=== PATIENT | male | born 1975 | race Caucasian/White ===

== ENCOUNTER → 2017-12-29 | Emergency (ER) | payer OTHER ==
[~2017-12-29] VITALS: Ht 165.1 cm; Wt 72.6 kg
[~2017-12-29] MED LIST: KETO10TA2 PO; NORFLEX100MG PO
== END | disposition home or self-care (01) ==
LOC: ER 15:14
DX: M54.2 Cervicalgia (principal); M25.511 Pain in right shoulder

== ENCOUNTER 2019-09-11 16:28 | Emergency (ER) | payer OTHER ==
[~2019-09-11] VITALS: Ht 165.1 cm; Wt 71.7 kg
[2019-09-11] MEDS ORDERED: VISTARIL25 MG PO (19:35)
== END 2019-09-11 19:59 | disposition home or self-care (01) ==
LOC: ER 16:28
DX: R07.89 Other chest pain (principal); R00.2 Palpitations; F06.4 Anxiety disorder due to known physiological condition

== ENCOUNTER 2020-01-29 14:57 | Outpatient (CLI) | payer OTHER ==
[~2020-01-29 14:57] MED LIST changes: +VISTARIL25 MG PO
== END 2020-01-29 15:04 | disposition home or self-care (01) ==
LOC: RAD 14:57
DX: R05 Cough (principal)

== ENCOUNTER 2020-01-29 15:29 | Outpatient (CLI) | payer OTHER | END 2020-01-29 15:44 | disposition home or self-care (01) | LOC: LAB 15:29 | DX: J11.1 Influenza due to unidentified influenza virus with other respiratory manifestations (principal); J20.8 Acute bronchitis due to other specified organisms ==

== ENCOUNTER 2020-11-10 13:46 | Emergency (ER) | payer OTHER ==
[~2020-11-10] VITALS: Ht 165.1 cm; Wt 69.9 kg
[2020-11-10] MEDS ORDERED: ZITHROMAX500 MG PO (15:57)
== END 2020-11-10 16:31 | disposition home or self-care (01) ==
LOC: ER 13:46
DX: B34.9 Viral infection, unspecified (principal); Z03.818 Encounter for observation for suspected exposure to other biological agents ruled out

== ENCOUNTER 2020-11-13 13:02 | Inpatient (IN) | payer OTHER ==
[~2020-11-13] VITALS: Ht 165.1 cm; Wt 70.3 kg
[~2020-11-13 13:02] MED LIST changes: +ZITHROMAX500 MG PO
== END 2020-11-16 20:02 | disposition home or self-care (01) | DRG 866 ==
LOC: ER 13:02 → SEC-K 18:43 → MEDI 18:43
PROVIDERS: ADMIT Internal Medicine; ATTEND Internal Medicine
PROC: CB2YYZZ Tomographic (Tomo) Nuclear Medicine Imaging of Respiratory System using Other Radionuclide (ICD-10-PCS; 2020-11-13)
PROC: 4A033R1 Measurement of Arterial Saturation, Peripheral, Percutaneous Approach (ICD-10-PCS; principal; 2020-11-14)
DX: A90 Dengue fever [classical dengue] (principal); J98.11 Atelectasis; E86.0 Dehydration; Z20.828 Contact with and (suspected) exposure to other viral communicable diseases; F41.9 Anxiety disorder, unspecified; D69.49 Other primary thrombocytopenia

== ENCOUNTER 2023-10-03 07:57 | Day surgery (SDC) | payer OTHER | END 2023-10-03 14:35 | disposition home or self-care (01) | LOC: AMB-ENDOS 07:57 | PROVIDERS: ATTEND Colon & Rectal Surgery | DX: K63.5 Polyp of colon (principal); R19.4 Change in bowel habit; Z20.822 Contact with and (suspected) exposure to COVID-19 ==